=== PATIENT | male | born 1960 | race Two or more races ===

== ENCOUNTER 2023-05-12 20:59 | Inpatient (IN) | payer MEDICAID ==
[~2023-05-12] VITALS: Ht 162.6 cm; Wt 86.0 kg
[2023-05-12] MEDS ORDERED: fentaNYL/PF 50MCG/1 ML 2ML syringe ONE (21:09)
[2023-05-12] MEDS ORDERED: heparin 1,000unit/ml 10ml vial 0 ML ONE (21:10)
[2023-05-12] MEDS ORDERED: iohexol 350MG/ML 100ml bottle IV ONE (21:10)
[2023-05-12] MEDS ORDERED: atropine 0.1mg/ml 10ml syringe ONE (21:10)
[2023-05-12] MEDS ORDERED: epiNEPHrine 0.1mg/ml 10ml syringe ONE (21:10)
[2023-05-12] MEDS ORDERED: midazolam 1 mg/ML 2ml injection ONE (21:10)
[2023-05-12] MEDS ORDERED: heparin 1,000 UNITS/NS 500ml 0 ML ONE (21:10)
[2023-05-12 21:25] LABS: BASOPHILS % (AUTO) 0.3 % (0-1); EOSINOPHILS % (AUTO) 0 % (0-6); HEMATOCRIT 31.5 % (42.0-52.0); HEMOGLOBIN 10.5 g/dl (14.0-17.9); LYMPHOCYTES # (AUTO) 0.9 X10'3 (1.1-4.8); LYMPHOCYTES % (AUTO) 9.3 % (21-51); MEAN CORPUSCULAR HEMOGLOBIN 30.6 PG (27.0-31.0); MEAN CORPUSCULAR HGB CONC 33.4 g/dL (33.0-36.5); MEAN CORPUSCULAR VOLUME 91.8 FL (78-98); MEAN PLATELET VOLUME 8.8 FL (7.4-10.4); MONOCYTES # (AUTO) 0.7 X10'3 (0-0.9); MONOCYTES % (AUTO) 7.4 % (2-12); NEUTROPHILS # (AUTO) 7.9 X10'3 (1.8-7.7); PLATELET COUNT 193 X10'3 (140-440); RED BLOOD COUNT 3.43 X10'6 (4.70-6.10); RED CELL DISTRIBUTION WIDTH 13.2 % (11.5-14.5); WHITE BLOOD COUNT 9.6 X10'3 (4.5-11.0)
[2023-05-12] MEDS ORDERED: sodium bicarbonate (8.4%) inj. 50 MEQ in dextrose 5% water 500ml 250 ML IV PRN (21:30)
[2023-05-12] MEDS ORDERED: insulin regular, human U-100 3ml vial - multi-dose IV PRN (21:30)
[2023-05-12] MEDS ORDERED: sodium bicarbonate (8.4%) inj. 100 MEQ in dextrose 5% water 500ml 500 ML IV PRN (21:30)
[2023-05-12] MEDS ORDERED: sodium phosphate inj. 15 MMOL in dextrose 5%-water 250 ML IV PRN (21:30)
[2023-05-12] MEDS ORDERED: potassium Cl 20 mEq SR tablet PO PRN ×2 (21:30)
[2023-05-12] MEDS ORDERED: sodium phosphate inj. 30 MMOL in dextrose 5%-water 250 ML IV PRN (21:30)
[2023-05-12] MEDS ORDERED: Neutra Phos packet PO PRN (21:30)
[2023-05-12] MEDS ORDERED: potassium CL 20mEq in D5-1/2NS 1,000 ML IV PRN (21:30)
[2023-05-12] MEDS ORDERED: normal saline 1000ml 1,000 ML IV SCH (21:30)
[2023-05-12] MEDS ORDERED: potassium Cl 40MEQ/1/2NS 520ml 520 ML IV PRN ×2 (21:30)
[2023-05-12] MEDS: normal saline 1000ml 1,000 ML IV SCH ×2 (21:35→22:24)
[2023-05-12 21:36] LABS: ALANINE AMINOTRANSFERASE 32 U/L (12-78); ALBUMIN 1.9 G/DL (3.4-5.0); ALBUMIN/GLOBULIN RATIO 0.5 (1.1-1.5); ALKALINE PHOSPHATASE 74 IU/L (46-116); ANION GAP 15 (8-16); ASPARTATE AMINO TRANSFERASE 59 U/L (10-37); BILIRUBIN,TOTAL 0.5 MG/DL (0.1-1.0); BLOOD UREA NITROGEN 19 MG/DL (7-18); CALCIUM 6.3 MG/DL (8.5-10.1); CHLORIDE 105 MMOL/L (99-107); CREATININE 1.19 MG/DL (0.60-1.10); GLUCOSE 310 MG/DL (70-104); POTASSIUM 3.3 MMOL/L (3.5-5.1); SODIUM 136 MMOL/L (135-145); TOTAL CARBON DIOXIDE 16.2 MMOL/L (24-32); TOTAL PROTEIN 5.7 G/DL (6.4-8.2); eCRCL 54 ML/MIN; eGFR 62 ML/MIN
[2023-05-12 21:43] LABS: PHOSPHORUS 2.7 MG/DL (2.3-4.5); PRO BRAIN NATRIURETIC PEPTIDE 7804 PG/ML (0-125)
[2023-05-12] MEDS: Insulin Reg/NS 100units/100mL 100 ML IV SCH (22:22)
[2023-05-13] VITALS (14 sets, daily range): BP systolic 108–134; BP diastolic 66–79; PULSE 94–106; RESP 14–32; TEMP 97.6–97.7; O2SAT 90–97
[2023-05-13] MEDS ORDERED: acetaminophen 650mg rectal suppository RC PRN
[2023-05-13] MEDS ORDERED: potassium Cl 40MEQ/1/2NS 520ml 520 ML IV PRN
[2023-05-13] MEDS ORDERED: ondansetron 4mg rapidly disintigrating tab PO PRN
[2023-05-13] MEDS ORDERED: potassium cl 20mEq in 1/2 NS 1,000 ML IV SCH
[2023-05-13] MEDS ORDERED: mag hydrox/Alum hydrox/simeth 30ml oral suspension PO PRN
[2023-05-13] MEDS ORDERED: acetaminophen 325mg tablet PO PRN
[2023-05-13] MEDS ORDERED: diphenhydrAMINE 25mg capsule PO PRN
[2023-05-13] MEDS ORDERED: potassium Cl 20 mEq SR tablet PO PRN ×2
[2023-05-13] MEDS ORDERED: HYDROcodone/acetaminophen 5mg/325mg tablet PO PRN
[2023-05-13] MEDS ORDERED: bisacodyl 10mg suppository rectal RC PRN
[2023-05-13] MEDS ORDERED: diphenhydrAMINE 50 mg/ml inj IV PRN
[2023-05-13] MEDS ORDERED: morphine 2 MG/ML inj. syringe IV PRN
[2023-05-13] MEDS ORDERED: magnesium hydroxide 30ml (MOM) UD suspension PO PRN
[2023-05-13] MEDS ORDERED: heparin 25,000 UNIT/250ml bag 250 ML IV PRN ×2 (00:10→17:19)
[2023-05-13] MEDS ORDERED: dextrose 50%-water 50ml dispensing syringe IV PRN ×3 (00:10→14:40)
[2023-05-13] MEDS ORDERED: heparin 10,000 units/1 ML INJ IV PRN (00:10)
[2023-05-13] MEDS ORDERED: albumin (Human) 5% 250ml 500 ML IV ONE (00:30)
[2023-05-13] MEDS: ondansetron/PF 4mg/2ml inj IV PRN ×3 (00:38→14:01)
[2023-05-13 01:15] LABS: ABG BASE EXCESS -3.7 mmol/L (-2.0-2.0); ABG HCO3 19.4 mmol/L (22.0-26.0); ABG OXYGEN SATURATION 91.7 % (94-97); ABG PCO2 (T) 30.4 mmHg (35.0-48.0); ABG PH (T) 7.424 (7.340-7.440); ABG PO2 (T) 62.7 mmHg (75.0-100.0); FCOHb 0.3 % (0.0-3.9); FHHb 8.3 % (0.0-5.0); FLOW 5 L/min; FMetHb 0.2 % (0.0-1.5); FO2Hb 91.2 % (94-97); MODE NASAL CANNULA; PATIENT TEMPERATURE 37.2; TOTAL HEMOGLOBIN 14.7 G/dl (14.0-17.9)
[2023-05-13 01:23] LABS: BASOPHILS # (AUTO) 0.1 X10'3 (0-0.2); BASOPHILS % (AUTO) 1.2 % (0-1); EOSINOPHILS % (AUTO) 0.3 % (0-6); HEMATOCRIT 40.3 % (42.0-52.0); HEMOGLOBIN 13.6 g/dl (14.0-17.9); LYMPHOCYTES # (AUTO) 1.1 X10'3 (1.1-4.8); LYMPHOCYTES % (AUTO) 10.6 % (21-51); MEAN CORPUSCULAR HEMOGLOBIN 30.5 PG (27.0-31.0); MEAN CORPUSCULAR HGB CONC 33.8 g/dL (33.0-36.5); MEAN CORPUSCULAR VOLUME 90.1 FL (78-98); MEAN PLATELET VOLUME 8.9 FL (7.4-10.4); MONOCYTES # (AUTO) 0.4 X10'3 (0-0.9); MONOCYTES % (AUTO) 3.7 % (2-12); NEUTROPHILS # (AUTO) 9.1 X10'3 (1.8-7.7); NEUTROPHILS % (AUTO) 84.2 % (42-75); PLATELET COUNT 251 X10'3 (140-440); RED BLOOD COUNT 4.48 X10'6 (4.70-6.10); RED CELL DISTRIBUTION WIDTH 13.5 % (11.5-14.5); WHITE BLOOD COUNT 10.8 X10'3 (4.5-11.0)
[2023-05-13 01:45] LABS: ALANINE AMINOTRANSFERASE 43 U/L (12-78); ALBUMIN 2.4 G/DL (3.4-5.0); ALBUMIN/GLOBULIN RATIO 0.5 (1.1-1.5); ALKALINE PHOSPHATASE 107 IU/L (46-116); ANION GAP 11 (8-16); ASPARTATE AMINO TRANSFERASE 90 U/L (10-37); BILIRUBIN,TOTAL 0.6 MG/DL (0.1-1.0); BLOOD UREA NITROGEN 23 MG/DL (7-18); BUN/CREATININE RATIO 15.2 (10.0-20.0); CALCIUM 7.8 MG/DL (8.5-10.1); CHLORIDE 99 MMOL/L (99-107); CREATININE 1.51 MG/DL (0.60-1.10); GLUCOSE 268 MG/DL (70-104); POTASSIUM 3.9 MMOL/L (3.5-5.1); SODIUM 132 MMOL/L (135-145); TOTAL CARBON DIOXIDE 21.8 MMOL/L (24-32); TOTAL PROTEIN 7.4 G/DL (6.4-8.2); eCRCL 42 ML/MIN; eGFR 47 ML/MIN
[2023-05-13 01:46] LABS: CREATINE KINASE 383 U/L (39-308); ETHANOL < 10 MG/DL (<10); LIPASE 14 U/L (16-77); MAGNESIUM 1.9 MG/DL (1.5-2.4); PHOSPHORUS 3.1 MG/DL (2.3-4.5); PRO BRAIN NATRIURETIC PEPTIDE 11903 PG/ML (0-125); THYROID STIMULATING HORMONE 2.64 ulU/ml (0.34-4.50)
[2023-05-13 01:48] LABS: INR 1.1 INR
[2023-05-13 01:56] LABS: D-DIMER < 0.19 MG/L FEU (0-0.50)
[2023-05-13] MEDS ORDERED: dextrose 5%-1/2 normal saline 1,000 ML IV SCH (01:56)
[2023-05-13 02:03] LABS: APTT 125 SECONDS (22-32)
[2023-05-13 02:40] LABS: HEMOGLOBIN A1C > 12.0 % (4.5-6.2)
[2023-05-13] MEDS ORDERED: Insulin Reg/NS 100units/100mL 100 ML IV SCH (06:00)
[2023-05-13] MEDS ORDERED: pantoprazole 40mg Tablet.DR PO SCH (07:30)
[2023-05-13] MEDS ORDERED: furosemide 20 MG/2 ML vial IV SCH (08:00)
[2023-05-13] MEDS: K and/or MAG REPLACEMENT MC SCH ×2 (08:00→20:00)
[2023-05-13] MEDS: docusate sod 100mg capsule PO SCH ×2 (08:00→21:31)
[2023-05-13] MEDS: nitroGLYCERIN 0.1mg/hour patch TD SCH ×2 (08:00→15:59)
[2023-05-13] MEDS ORDERED: atorvastatin 20mg tablet PO SCH (08:00)
[2023-05-13] MEDS ORDERED: metoprolol succinate 25mg (24-HOUR) SR. Tablet PO SCH (08:00)
[2023-05-13] MEDS ORDERED: CefTRIAXone/D5W-Rocephin 1gm 50 ML IV SCH (08:00)
[2023-05-13] MEDS ORDERED: aspirin 81mg tab.chew PO SCH (08:30)
[2023-05-13] MEDS: Insulin Reg/NS 100units/100mL 100 ML IV SCH (09:33)
[2023-05-13] MEDS ORDERED: iohexol 350 MG/ML 50ML vial IV ONE ×3 (11:11→12:12)
[2023-05-13] MEDS ORDERED: iohexol 350MG/ML 100ml bottle IV ONE (11:11)
[2023-05-13] MEDS ORDERED: LIDOcaine 1% (10mg/ml)w/preservative inj. 20ml MDV ONE (11:11)
[2023-05-13] MEDS ORDERED: midazolam 1 mg/ML 2ml injection ONE (11:11)
[2023-05-13] MEDS ORDERED: fentaNYL/PF 50MCG/1 ML 2ML syringe ONE (11:11)
[2023-05-13] MEDS ORDERED: ondansetron/PF 4mg/2ml inj ONE (11:34)
[2023-05-13] MEDS ORDERED: diphenhydrAMINE 50 mg/ml inj ONE (11:36)
[2023-05-13 12:39] LABS: ALANINE AMINOTRANSFERASE 33 U/L (12-78); ALBUMIN 2.2 G/DL (3.4-5.0); ALBUMIN/GLOBULIN RATIO 0.6 (1.1-1.5); ALKALINE PHOSPHATASE 83 IU/L (46-116); ANION GAP 11 (8-16); ASPARTATE AMINO TRANSFERASE 73 U/L (10-37); BILIRUBIN,TOTAL 0.5 MG/DL (0.1-1.0); BLOOD UREA NITROGEN 20 MG/DL (7-18); BUN/CREATININE RATIO 17.1 (10.0-20.0); CALCIUM 6.9 MG/DL (8.5-10.1); CHLORIDE 99 MMOL/L (99-107); CREATININE 1.17 MG/DL (0.60-1.10); GLUCOSE 186 MG/DL (70-104); PHOSPHORUS 2.6 MG/DL (2.3-4.5); POTASSIUM 3.9 MMOL/L (3.5-5.1); SODIUM 128 MMOL/L (135-145); TOTAL CARBON DIOXIDE 18.4 MMOL/L (24-32); TOTAL PROTEIN 5.8 G/DL (6.4-8.2); eCRCL 55 ML/MIN; eGFR 63 ML/MIN
[2023-05-13 12:54] LABS: ISTAT HGB ART 11.6 g/dl (14.0-17.9); ISTAT Hct ART 34 %PCV (42-52); ISTAT O2 SATURATION ARTERIAL 94 % (95-98); ISTAT SOURCE ART
[2023-05-13] MEDS ORDERED: normal saline 1000ml 1,000 ML IV SCH (13:45)
[2023-05-13] MEDS ORDERED: cyclobenzaprine 10mg tablet PO PRN (13:50)
[2023-05-13] MEDS ORDERED: OXAZEpam 15mg capsule PO PRN (13:50)
[2023-05-13] MEDS ORDERED: morphine 10mg/ml inj. IV PRN (13:50)
[2023-05-13] MEDS ORDERED: morphine 4 MG/ML inj SYRINge IV PRN (13:50)
[2023-05-13 14:23] LABS: ISTAT HGB MIX 12.2 g/dl (14.0-17.9); ISTAT Hct MIX 36 %PCV (42-52); ISTAT O2 SATURATION MIX VENOUS 45 % (60-80); ISTAT SOURCE VEN
[2023-05-13] MEDS ORDERED: glucagon, human recombinant 1mg kit SUBCUT PRN (14:40)
[2023-05-13] MEDS ORDERED: DEXTROSE 15 GM of carb/4 tabs (each vial/BOTTLE has 4 tablets) PO PRN ×2 (14:40)
[2023-05-13 15:20] LABS: ALBUMIN 2.4 G/DL (3.4-5.0); ANION GAP 10 (8-16); BLOOD UREA NITROGEN 19 MG/DL (7-18); BUN/CREATININE RATIO 17.1 (10.0-20.0); CALCIUM 7.1 MG/DL (8.5-10.1); CHLORIDE 101 MMOL/L (99-107); CREATININE 1.11 MG/DL (0.60-1.10); GLUCOSE 162 MG/DL (70-104); PRO BRAIN NATRIURETIC PEPTIDE 9595 PG/ML (0-125); SODIUM 131 MMOL/L (135-145); eCRCL 58 ML/MIN; eGFR 67 ML/MIN
[2023-05-13] MEDS: insulin Lispro (HumaLOG) vial - multi-dose SQ SCH ×2 (15:54→20:55)
[2023-05-13] MEDS ORDERED: PIOG30TA71 PO (19:42)
[2023-05-13] MEDS ORDERED: insulin glargine (Lantus) pen - multi-dose SQ SCH (21:00)
[2023-05-13] MEDS ORDERED: temazepam 15mg capsule PO PRN (21:00)
== END 2023-05-13 23:00 | disposition short-term general hospital (02) | DRG 190 ==
LOC: ER 21:00 → ED HOLD 05-13 00:08 → PCU 3S 05-13 07:44 → CICU 2S 05-13 12:23
PROVIDERS: ADMIT Family Medicine; ATTEND Internal Medicine
PROC: 4A023N8 Measurement of Cardiac Sampling and Pressure, Bilateral, Percutaneous Approach (ICD-10-PCS; principal; 2023-05-13)
PROC: B2111ZZ Fluoroscopy of Multiple Coronary Arteries using Low Osmolar Contrast (ICD-10-PCS; 2023-05-13)
PROC: B2151ZZ Fluoroscopy of Left Heart using Low Osmolar Contrast (ICD-10-PCS; 2023-05-13)
PROC: B2181ZZ Fluoroscopy of Left Internal Mammary Bypass Graft using Low Osmolar Contrast (ICD-10-PCS; 2023-05-13)
PROC: B2171ZZ Fluoroscopy of Right Internal Mammary Bypass Graft using Low Osmolar Contrast (ICD-10-PCS; 2023-05-13)
PROC: B3101ZZ Fluoroscopy of Thoracic Aorta using Low Osmolar Contrast (ICD-10-PCS; 2023-05-13)
PROC: B41G1ZZ Fluoroscopy of Left Lower Extremity Arteries using Low Osmolar Contrast (ICD-10-PCS; 2023-05-13)
PROC: B41F1ZZ Fluoroscopy of Right Lower Extremity Arteries using Low Osmolar Contrast (ICD-10-PCS; 2023-05-13)
DX: I21.19 ST elevation (STEMI) myocardial infarction involving other coronary artery of inferior wall (principal); J96.00 Acute respiratory failure, unspecified whether with hypoxia or hypercapnia; I50.33 Acute on chronic diastolic (congestive) heart failure; E11.10 Type 2 diabetes mellitus with ketoacidosis without coma; N17.9 Acute kidney failure, unspecified; E83.51 Hypocalcemia; E88.09 Other disorders of plasma-protein metabolism, not elsewhere classified; G89.29 Other chronic pain; I25.10 Atherosclerotic heart disease of native coronary artery without angina pectoris; Z20.822 Contact with and (suspected) exposure to COVID-19; E87.6 Hypokalemia; D64.9 Anemia, unspecified; K76.1 Chronic passive congestion of liver; K76.89 Other specified diseases of liver; M54.50 Low back pain, unspecified; Z87.891 Personal history of nicotine dependence; Z88.8 Allergy status to other drugs, medicaments and biological substances
CPT/HCPCS: 36415; 36600; 71045; 71250; 74176; 80048; 80053; 80320; 82550; 82803; 82948; 83036; 83605; 83690; 83735; 83880; 84100; 84443; 84484; 85014; 85018; 85025; 85379; 85610; 85730; 87040; 87502; 87503; 87811; 93005; 93306; 93460; 93567; 99152; 99153; 99285; A6258; C1729; C1751; C1758; C1894; G0378; J0171; J0461; J0696; J1200; J1644; J1815; J1940; J2250; J2405; J3010; J3480; J3490; J7030; J7040; J7042; P9045; Q0163; Q9967